=== PATIENT | male | born 1980 | race Caucasian/White ===

== ENCOUNTER 2023-12-25 18:15 | Emergency (ER) | payer SELFPAY ==
[2023-12-25] MEDS ORDERED: FENTANYL CITR 100 MCG/2 ML ONE (18:32)
[2023-12-25 18:36] LABS: Absolute Basophils 0.1 K/uL (0-0.5); Absolute Eosinophils 0.4 K/uL (0-0.5); Absolute Lymphocytes (CBC) 2.6 K/uL (0.7-4.9); Absolute Monocytes 0.8 K/uL (0.1-1.3); Absolute Neutrophil 8.9 K/uL (1.8-8.0); Basophils % 0.5 % (0-1.3); Eosinophils % 3.3 % (0-4.4); Hematocrit 44.5 % (39.6-49.0); Hemoglobin 15.4 g/dL (13.6-17.9); Lymphocytes % 20.2 % (15.3-44.8); MCHC 34.5 g/dL (32.0-36.0); MCV 89.9 fL (80-100); MPV 6.4 fL (7.6-11.3); Monocytes % 6.1 % (3.3-12.3); Neutrophils % 69.9 % (41.7-73.7); Platelets 330 thou/uL (152-406); RBC Red Blood Cell Count 4.95 M/uL (4.33-5.43); Red Cell Distribution Width 13.1 % (12.1-15.2)
[2023-12-25 18:43] LABS: PT Prothrombin Time 12.4 SECONDS (9.4-12.5); PTT, Activated Partial Thromb 28.4 SECONDS (24.3-36.9); Protime INR 1.11
[2023-12-25] MEDS ORDERED: TDAP (DIPHTH,PERTUSS(ACELL),TET VAC) 0.5 ML VIAL IMVAC ONE (18:44)
[2023-12-25 18:49] LABS: Anion Gap 8.5 mEq/L (5.0-15.0); Potassium 3.5 mEq/L (3.5-5.1)
--- NOTE | 2023-12-25 19:24 | RAD REPORT ---
Procedure: Chest Single View HISTORY: Chest pain COMPARISON: none FINDINGS: The lungs appear clear of acute infiltrate. No significant pleural effusion noted. The heart is normal size. Moderately displaced oblique fracture mid left clavicle.
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
--- NOTE | 2023-12-25 19:25 | RAD REPORT ---
Exam:Shoulder Left 2+ Views HISTORY: Left shoulder pain FINDINGS: Moderately displaced oblique fracture mid left clavicle. No dislocation
--- NOTE | 2023-12-25 19:28 | RAD REPORT ---
Exam:Clavicle Left CLINICAL HISTORY: Shoulder pain FINDINGS: Moderately displaced oblique fracture mid left clavicle. No dislocation
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
[2023-12-25] MEDS ORDERED: methocarbamoL 750 MG TAB ONE (20:20)
[2023-12-25] MEDS ORDERED: IBUPROFEN 200 MG TAB PO ONE (20:20)
[2023-12-25] MEDS ORDERED: CODEINE 30MG/APAP 300MG TAB ONE (20:21)
[2023-12-26 00:48] VITALS: TEMP 98.1; O2SAT 100
[2023-12-26 00:52] VITALS: BP 127/84
== END 2023-12-25 20:30 | disposition home or self-care (01) ==
LOC: ER 18:15
DX: S42.012A Anterior displaced fracture of sternal end of left clavicle, initial encounter for closed fracture (principal); S20.222A Contusion of left back wall of thorax, initial encounter; V86.56XA Driver of dirt bike or motor/cross bike injured in nontraffic accident, initial encounter
CPT/HCPCS: 36415; 70450; 71045; 72125; 74177; 80048; 85025; 85610; 85730; J3010; Q9967